=== PATIENT | female | born 1965 | race African-American/Black ===

== ENCOUNTER 2017-12-12 04:55 | Emergency (ER) | payer OTHER ==
[~2017-12-12] VITALS: Ht 172.7 cm; Wt 90.7 kg
[2017-12-12 04:57] VITALS: BP_SYST 170
--- NOTE | 2017-12-12 05:00 | NUR ---
LAC 20g IV placed, labs drawn from IV site and sent to lab. patient tolerated well.
--- NOTE | 2017-12-12 05:00 | NUR ---
Patient placed on bed 8. Attached to tele monitor.
--- NOTE | 2017-12-12 05:02 | NUR ---
Note undone in EDM - 12/12/17 at 0530 by LEONCIONURAMN # 20 gauge angiocath placed to Left AC. Use of asceptic technique. Opsite placed over site. Blood return noted. Blood for lab drawn from site. Flushed with 10 cc of normal saline. No evidence of infiltration noted. Patient tolerated well.
--- NOTE | 2017-12-12 05:06 | NUR ---
Patient is a 52 Y/O Female who was brought by her to ER due to palpitations. According to the patient, she woke up around 4 this morning and can feel her palpitations which is getting worse. She also complains of dizziness and nausea. Patient's only medical history is anemia. Patient has Aflutter on the EKG and Hypertensive with no history. Will continue to monitor patient.
--- NOTE | 2017-12-12 05:07 | NUR ---
Urine HCG done, results negative
--- NOTE | 2017-12-12 05:26 | NUR ---
Dr. Vargas at bedside , examining patient.
[2017-12-12 05:43] LABS: BILIRUBIN,URINE NEGATIVE (NEGATIVE); CLARITY/URINE CLEAR (CLEAR); COLOR,URINE YELLOW (YELLOW); GLUCOSE,URINE NEGATIVE (NEGATIVE); KETONES,URINE NEGATIVE (NEGATIVE); LEUKOCYTE ESTERASE ,URINE NEGATIVE (NEGATIVE); NITRITE, URINE NEGATIVE (NEGATIVE); PROTEIN URINE NEGATIVE (NEGATIVE)
[2017-12-12] MEDS ORDERED: ASPIRIN 81 MG TAB.CHEW PO ONE (05:45)
[2017-12-12 05:50] LABS: CREATININE 0.83 mg/dL (0.55-1.30); POTASSIUM 3.3 mmol/L (3.5-5.1)
[2017-12-12 05:51] LABS: BASOPHILS # (AUTO) 0.1 K/uL (0.0-0.2); BASOPHILS % (AUTO) 1.3 % (0.0-2.0); EOSINOPHILS # (AUTO) 0.3 K/uL (0.0-0.4); EOSINOPHILS % (AUTO) 4.8 % (0.0-4.0); HEMATOCRIT 31.1 % (36-48); HEMOGLOBIN 9.5 g/dL (12.0-16.0); LYMPHOCYTES # (AUTO) 2.6 K/uL (1.0-5.5); MEAN CORPUSCULAR HEMOGLOBIN 21 pg (27-31); MEAN CORPUSCULAR HGB CONC 31 % (32-36); MEAN CORPUSCULAR VOLUME 68 fL (79.0-98.0); MONOCYTES # (AUTO) 0.5 K/uL (0.0-1.0); MONOCYTES % (AUTO) 8.5 % (1.7-9.3); NEUTROPHILS # (AUTO) 2.3 K/uL (1.8-7.7); NEUTROPHILS % (AUTO) 39.4 % (40.0-70.0); PROTHROMBIN TIME 10.6 SECS (9.5-12.5); RED BLOOD CELL COUNT(AUTO) 4.55 MIL/uL (4.2-6.2); RED CELL DISTRIBUTION WIDTH 19.3 % (9.0-15.0); WHITE BLOOD COUNT (AUTO) 5.8 K/uL (4.8-10.8)
[2017-12-12 05:56] LABS: ALBUMIN 3.8 g/dL (3.4-4.8); TOTAL BILIRUBIN 0.4 mg/dL (0.0-1.0)
[2017-12-12 06:00] LABS: BLOOD, URINE TRACE (NEGATIVE)
[2017-12-12 06:03] LABS: BACTERIA,URINE FEW /HPF (None Seen); WBC,URINE 0-3 /HPF (0-3)
[2017-12-12 06:04] LABS: MUCUS,URINE None Seen /LPF (None Seen); YEAST,URINE None Seen /HPF (None Seen)
[2017-12-12 06:29] LABS: PLATELET COUNT (AUTO) 325 K/uL (130-430)
--- NOTE | 2017-12-12 06:36 | NUR ---
Patient resting quietly. No acute distress noted. HR 93, BP 139/79, O2 @100% on RA and RR 18. patient denies pain at this time. will continue to monitor.
--- NOTE | 2017-12-12 07:14 | NUR ---
Patient endorsed to DUANE GUTIERREZ
--- NOTE | 2017-12-12 07:15 | NUR ---
Patient is resting comfortably in bed. She denies pain. No s/s of distress noted.
[2017-12-12 07:42] LABS: FREE T4 (FREE THYROXINE) 0.8 ng/dL (0.6-1.6); THYROID STIMULATING HORMONE 1.32 uIu/mL (0.34-4.82)
[2017-12-12] MEDS ORDERED: MAGNESIUM SULFATE 50 ML IV ONE (07:45)
--- NOTE | 2017-12-12 08:03 | NUR ---
Dr. Vargas at bedside updating patient on her status.
[2017-12-12 09:05] VITALS: BP_SYST 140
== END 2017-12-12 09:05 | disposition home or self-care (01) ==
LOC: SED 04:55
DX: R00.2 Palpitations (principal); R03.0 Elevated blood-pressure reading, without diagnosis of hypertension; Z88.0 Allergy status to penicillin; Z86.2 Personal history of diseases of the blood and blood-forming organs and certain disorders involving the immune mechanism
CPT/HCPCS: 36415; 71045; 80053; 81000; 83880; 84439; 84443; 84484; 85025; 85610; 85730; 93005; 96365; 99285; J3475